=== PATIENT | female | born 1965 | race African-American/Black ===

== ENCOUNTER 2017-01-20 23:06 | Emergency (ER) | payer OTHER ==
--- NOTE | ~2017-01-20 | CR72 ---
[facility] A Service of [facility] RADIOLOGY TEXT RESULTS PATIENT: KENDRA BLACK LOCATION: [facility] : 65 UNIT #: [id number] AGE: [address]: Pedro Rdz MD SEX: F ORDER DR: [id number] [facility] [address] [place], [place] [address] [id number] E MR#: [id number] Acc #: [id number] NAME: KENDRA BLACK : 1965 SEX: F STUDY DATE/TIME: 01/20/2017 22:08 UNIT: [facility] ROOM: STUDY DESCRIPTION: CR Chest Single View Portable Attending Physician: Pedro Rdz M.D. Ordering Physician: Pedro Rdz M.D. Primary Care Physician: [facility] MEDICAL IMAGING REPORT This report is preliminary unless electronic signature is present EXAM AP portable chest 01/20/2017. HISTORY 51-year-old female in the ED complaining of 2-day history of shortness of air and chest tightness. TECHNIQUE AP portable upright chest x-ray. FINDINGS The heart size and pulmonary vascularity are within normal limits. The lungs appear clear. No visible pulmonary infiltrate or pleural effusion. No change since 12/20/2016. IMPRESSION Negative chest. No change since 12/20/2016. Dictated by... Isaiah Glaser M.D. THIS IS AN ELECTRONICALLY VERIFIED REPORT Isaiah Glaser M.D. at 01/21/2017 9:56 PM RGW/gz TD: 01/21/2017 11:50 JOB #: [id number] MEDICAL IMAGING REPORT COPY
--- NOTE | ~2017-01-20 | EKG ---
PATIENT: KENDRA BLACK UNIT #: [id number] Ventricular Rate: 92 BPM Atrial Rate: 92 BPM P-R Interval: 160 ms QRS Duration: 96 ms Q-T Interval: 378 ms QTC Calculation(Bezet): 467 ms P Alston: 36 degrees Calculated R [place]ston: 40 degrees Calculated T [place]ston: 2 degrees Diagnosis Line: Normal sinus rhythm Diagnosis Line: Normal ECG Diagnosis Line: When compared with ECG of 31-AUG-2016 00:49, Diagnosis Line: No significant change was found Diagnosis Line: Confirmed by MEDARDO MOSQUERA MD ([id number]) on Diagnosis Line: 01/21/2017 8:03:12 AM INTERPRETING MD: DEMETRI BEAVER
[2017-01-20 22:33] LABS: BASOPHIL% 0.5 % (0-2.5); EOSINOPHIL# 0.5 X10e3 (0-0.7); EOSINOPHIL% 11.9 % (0.0-7.0); HEMATOCRIT 40.9 % (35.0-45.0); HEMOGLOBIN 13.1 gm/dL (12.0-16.0); LYMPHOCYTE# 1.7 X10e3 (1.0-3.5); LYMPHOCYTE% 40.5 % (17.0-45.0); MEAN CELL VOLUME 82.9 FL (83-96); MEAN CORPUSCULAR HEMOGLOBIN 26.6 PG (28-34); MEAN CORPUSCULAR HGB CONC 32.1 g/dL (30-36); MEAN PLATELET VOLUME 8.4 FL (6.5-11.5); MONOCYTE# 0.3 X10e3 (0-1.0); MONOCYTE% 8.1 % (3.0-12.0); NEUTROPHIL# 1.7 X10e3 (1.5-7.1); PLATELET COUNT 265 X10e3 (140-420); RED BLOOD COUNT 4.93 X10e (3.90-5.30); WHITE BLOOD COUNT 4.3 X10e3 (4.0-10.5)
[2017-01-20 22:36] LABS: DIFF IND NO
[2017-01-20 22:55] LABS: ALKALINE PHOSPHATASE 81 U/L (32-92); ALT (SGPT) 11 U/L (10-40); AST (SGOT) 18 U/L (10-42); BILIRUBIN, DIRECT 0.1 mg/dL (0.0-0.2); BILIRUBIN,INDIRECT 0.3 mg/dL (0.0-0.9); BILIRUBIN,TOTAL 0.4 mg/dL (0.2-2.0); BLOOD UREA NITROGEN 8 mg/dL (9-23); CALCIUM SERUM 8.4 mg/dL (8.4-10.2); CARBON DIOXIDE 28 mmol/L (22-31); CHLORIDE 102 mmol/L (100-111); CREATININE SERUM 0.8 mg/dL (0.6-1.4); GLOM FILT RATE Estimated ABOVE60 mL/min (>60); GLUCOSE FASTING 104 mg/dL (70-110); POTASSIUM 3.6 mmol/L (3.5-5.1); PROTEIN TOTAL SERUM 7.5 g/dL (6.0-8.3); SODIUM 134 mmol/L (135-145)
[~2017-01-20 23:06] MED LIST: ALDACTONE25 MG PO; ALPRAZOLAM1 M1 PO; AMOXICILLIN500 M1 PO; ASPIRIN81 M1 PO; ASPIRINEC PO; ATARAX PO; CYMBALTA PO; DETROL LA PO; HCTZ PO; NOT RECONCILED; PRILOSEC PO; PROMETHAZINE12.5 MG PO; PROTONIX PO; ROBITUSSIN-DM120 ML PO; SERTRALINE HCL50 MG PO; SINGULAIR PO; TUSSINEX PO; ZITHROMAX PO; ZOCOR80 MG PO
== END 2017-01-20 23:45 | disposition home or self-care (01) ==
LOC: CED 23:06
PROVIDERS: Emergency Medicine
DX: J44.1 Chronic obstructive pulmonary disease with (acute) exacerbation (principal); R07.89 Other chest pain; I10 Essential (primary) hypertension; F17.200 Nicotine dependence, unspecified, uncomplicated; Z88.0 Allergy status to penicillin; Z91.040 Latex allergy status
CPT/HCPCS: 36415; 71010; 80048; 80076; 85025; 85379; 87040; 93005; 94640; 96374; 99284; J2930